=== PATIENT | male | born 1990 | race Caucasian/White ===

== ENCOUNTER 2024-10-07 15:03 | Outpatient (CLI) | payer MEDICAID, SELFPAY ==
[2024-10-07 21:46] LABS: Basophils # 0.1 K/mm3 (0-0.2); Basophils % 0.7 % (0.1-2.0); Eosinophils # 0.5 K/mm3 (0.0-0.4); Eosinophils % 6.5 % (0.1-12.0); Hematocrit 40.6 % (42.0-52.0); Hemoglobin 14.2 g/dL (14.1-18.0); Lymphocytes # 2.2 K/mm3 (0.7-4.5); Lymphocytes % 31.6 % (10-50); Mean Corpuscular Hemoglobin 31.5 pg (27.0-31.2); Mean Platelet Volume 11.7 fl (7.4-10.4); Monocytes # 0.5 K/mm3 (0.1-1.0); Monocytes % 6.4 % (1.7-9.3); Neutrophils # 3.8 K/mm3 (1.8-7.8); Neutrophils % 54.5 % (37.0-80.0); Platelet Count 360 K/mm3 (142-424); Red Blood Count 4.51 M/mm3 (4.60-6.20); Red Cell Distribution Width 12.3 % (11.5-17.5)
[2024-10-07 23:04] LABS: Albumin Level 4.9 g/dl (3.5-5.0); Chloride 102 mmol/L (98-107); Sodium 139 mmol/L (136-145)
[2024-10-07 23:05] LABS: Potassium 4.7 mmoL/L (3.5-5.1)
[2024-10-07 23:07] LABS: Alanine Aminotransferase 21 U/L (12-78); Albumin/Globulin Ratio 1.6 (1.1-1.8); Alkaline Phosphatase 71 U/L (38-126); Anion Gap 11.7 mEq/L (5-15); Aspartate Amino Transferase 28 U/L (17-59); Bilirubin,Total 0.4 mg/dl (0.2-1.3); Blood Urea Nitrogen 15 mg/dl (9-20); Carbon Dioxide 30 mmol/L (22.0-30.0); Estimated Glomerular Filt Rate 97 ml/min (>60); GFR (African American) 118 ML/MIN (>60); Total Protein,Serum 7.9 g/dl (6.3-8.2)
[2024-10-07 23:08] LABS: Calcium 9.7 mg/dl (8.4-10.2); Chol/HDL Ratio 3.8 (1-3.5); Cholesterol 160 mg/dl (140-200); Glucose 91 mg/dl (74-100); HDL Cholesterol 42 mg/dl (40-60); Triglycerides 188 mg/dl (30-150); VLDL Cholesterol 38 mg/dL (0-40)
[2024-10-07 23:20] LABS: Direct LDL Cholesterol 81.09 mg/dL (100-129)
[2024-10-07 23:25] LABS: T4 (Thyroxine) 9.1 ug/dl (5.53-11.0)
[2024-10-07 23:29] LABS: 25-OH Vitamin D, Total < 12.8 ng/mL (30-100)
[2024-10-08 00:05] LABS: HIV Combo NEGATIVE (Negative)
[2024-10-08 00:33] LABS: Thyroid Stimulating Hormone 0.99 uIU/mL (0.465-4.68)
[2024-10-08 02:03] LABS: Hepatitis C Ab Qual. W/ RFX NEGATIVE (Negative)
== END 2024-10-07 23:59 | disposition home or self-care (01) ==
LOC: LAB.DROPOF 10-08 11:00
PROVIDERS: PCP Nurse Practitioner Family; Visit Provider Nurse Practitioner Family
DX: Z11.59 Encounter for screening for other viral diseases (principal); Z76.89 Persons encountering health services in other specified circumstances; E55.9 Vitamin D deficiency, unspecified
CPT/HCPCS: 80053; 80061; 82306; 84436; 84443; 85025; 86803; 87389